=== PATIENT | female | born 1960 | race African-American/Black ===

== ENCOUNTER 2016-12-19 13:10 | Inpatient (IN) | payer OTHER ==
[~2016-12-19] VITALS: Ht 160 cm; Wt 79.4 kg
[~2016-12-19 13:10] MED LIST: LOTENSIN40 MG PO; NORCO 325 MG-7.1 TAB PO
[2016-12-19 13:14] VITALS: BP 153/98
--- NOTE | 2016-12-19 13:18 | NUR ---
Patient ambulated to bed 8. RN evaluating patient at bedside.
--- NOTE | 2016-12-19 13:29 | NUR ---
Dr. Christina evaluating patient at bedside.
--- NOTE | 2016-12-19 13:30 | NUR ---
PATIENT PRESENTS TO ED WITH C/O SOB X2 DAYS WITH COUGH; DENIES N/V/D; SKIN IS PINK/WARM/DRY; AAOX4 WITH EVEN AND STEADY GAIT; LUNGS CLEAR BL; HR EVEN AND REGULAR; PT DENIES ANY FEVER, CP, SOB, OR COUGH AT THIS TIME; PATIENT STATES PAIN OF 0/10 AT THIS TIME; VSS; PATIENT POSITIONED FOR COMFORT; HOB ELEVATED; BEDRAILS UP X2; BED DOWN. ER MD MADE AWARE OF PT STATUS.
--- NOTE | 2016-12-19 13:32 | NUR ---
Note undone in EDM - 12/19/16 at 1334 by MAGALI Patient discharged with v/s stable. Written and verbal after care instructions given and explained to parent/guardian. Parent/Guardian verbalized understanding of instructions. Carried with by parent. All questions addressed prior to discharge. ID band removed. Parent/Guardian advised to follow up with PMD. Rx of AMOXICILLIN given. Parent/Guardian educated on indication of medication including possible reaction and side effects. Opportunity to ask questions provided and answered.
[2016-12-19] MEDS ORDERED: methylPREDNISolone SS 125 MG/2 ML VIAL IVP ONE (13:40)
[2016-12-19] MEDS ORDERED: IPRATROPIUM 0.02% 0.5 MG/2.5 ML NEBU INH ONE (13:40)
[2016-12-19] MEDS ORDERED: ALBUTEROL 0.083% 2.5 MG/3 ML NEBU INH ONE (13:40)
--- NOTE | 2016-12-19 13:46 | NUR ---
EKG completed by EMT at bedside.
--- NOTE | 2016-12-19 13:48 | NUR ---
RN AND LAB AT BEDSIDE
--- NOTE | 2016-12-19 13:48 | NUR ---
Respiratory therapist at bedside for administration of breathing treatment and ABG collection.
--- NOTE | 2016-12-19 13:52 | NUR ---
ARTERIAL BLOD GAS DRAWN ORDERED EDUCATION PROVIDED TO PATIENT WITH ACKNOWLEDGEMENT PUNCTURE SITE AT LEFT RADIAL TOLERATED WELL WITHOUT INCIDENT
--- NOTE | 2016-12-19 13:55 | NUR ---
ADMITING DX: SOB AWAKE AND ALERT IN HFW POSITION EDUCATION PROVIDED TO PATIENT WITH ACKNOWLEDGEMENT ON HHN THERAPY AND RESPIRATORY DRUGS HHN THERAPY GIVEN ORDERED ENCOURAGED DEEP BREATH DURING THERAPY TOLERATED WELL WITHOUT INCIDENT POST HHN THERAPY PLACED ON SUPPLEMENTAL OXYGEN AT 2 LPM VIA NC
--- NOTE | 2016-12-19 14:05 | NUR ---
REVIEWED ARTERIAL BLOD GAS REPORT WITH DR. KRISTINA KIRBY POST HHN THERAPY OKAY TO PLACE PATIENT ON SUPPLEMENTAL OXYGEN AT 2 LPM VIA NC
--- NOTE | 2016-12-19 14:30 | NUR ---
RECEIVED PT ON UNIT FROM ED, VIA WILLIAM, PT IS A/OX4, SKIN IS INTACT, IV ON RT HAND, PATENT, INTACT, FLUSHING WELL, PT ON O2 2L NC, NO S/S OF RESPIRATORY DISTRESS OR DISCOMFORT NOTED, ORIENTED PT TO ROOM, SAFETY/FALL PRECAUTIONS IN PLACE, DISCUSSED PLAN OF CARE WITH PT, PT VERBALIZED UNDERSTANDING, SISTER IS AT BEDSIDE, CALL LIGHT IS WITHIN REACH, WILL CONTINUE TO MONITOR
[2016-12-19] MEDS ORDERED: NITROGLYCERIN 2% 1 GM PKT TP ONE (15:00)
[2016-12-19] MEDS ORDERED: ASPIRIN 81 MG TAB.CHEW PO ONE (15:00)
[2016-12-19] MEDS ORDERED: HYDROcodone/APAP 7.5/325 MG 1 TAB PO PRN (15:30)
[2016-12-19] MEDS ORDERED: ACETAMINOPHEN 325 MG TAB PO PRN (15:30)
[2016-12-19] MEDS ORDERED: ONDANSETRON 4 MG/2 ML VIAL IVP PRN (15:30)
[2016-12-19] MEDS ORDERED: LORazepam 2 MG/ML VIAL IVP PRN (15:30)
--- NOTE | 2016-12-19 15:50 | NUR ---
Patient will be admitted to care of DR GRANGER. Admited to TELE. Will go to room 120A. Belongings list completed. Report to SHEKHAR RONDON.
--- NOTE | 2016-12-19 17:15 | NUR ---
PAGED Shauna MATA FOR ORDERS AND TO INFORM HIM OF TROPONIN LEVEL.
--- NOTE | 2016-12-19 17:29 | NUR ---
RECEIVED PHONE CALL FROM DR. GRANGER, I LET HIM KNOW PT TROPONIN LEVEL WAS 1.375. PER DR. GRANGER HE WILL BE COMING IN TONIGHT TO SEE THE PT, FOR NOW WILL ORDER LOPRESSOR 12.5MG BID AND LOVENOX 60MG SQ BID, FOR LOVENOX GIVE FIRST DOSE NOW.
[2016-12-19] MEDS ORDERED: ENOXAPARIN 60 MG/0.6 ML SYR SUBQ SCH (18:00)
[2016-12-19] MEDS: ALBUTEROL 0.083% 2.5 MG/3 ML NEBU IH SCH (19:14)
[2016-12-19] MEDS: IPRATROPIUM 0.02% 0.5 MG/2.5 ML NEBU INH SCH (19:14)
--- NOTE | 2016-12-19 19:30 | NUR ---
ASSUMED CARE OF PATIENT, AWAKE, ALERT AND ORIENTED. BREATHING TREATMENT RENDERED BT RT AT BEDSIDE. NO COMPLAINS. CALL LIGHT WITHIN REACH.
--- NOTE | 2016-12-19 19:35 | NUR ---
ENDORSED PT TO SHEKHAR FOSTER. FOR CONTINUITY OF CARE, PT STABLE AT THIS TIME, FAMILY MEMBER IS AT BEDSIDE.
[2016-12-19 20:00] VITALS: BP 140/76
--- NOTE | 2016-12-19 20:00 | NUR ---
PLAN OF CARE DISCUSSED WITH PATIENT, VERBALIZED UNDERSTANDING WELL. VITAL SIGNS STABLE. AFEBRILE. CALL LIGHT WITHIN REACH. ADVISED TO DO DEEP BREATHING AND COUGHING EXERCISES NOTED, AMENABLE.
[2016-12-19] MEDS: FUROSEMIDE 20 MG/2 ML VIAL IVP SCH (20:24)
[2016-12-19] MEDS: methylPREDNISolone SS 40 MG/ML VIAL IVP SCH (20:24)
[2016-12-19] MEDS: METOPROLOL 25 MG TAB PO SCH (20:25)
--- NOTE | 2016-12-19 21:00 | NUR ---
DR. GRANGER AT BEDSIDE TO SEE PATIENT. ORDERED TO TRANSFER TO [facility] FOR ANGIOGRAM AT 1400. NPO AFTER BREAKFAST PER DR. GRANGER. PATIENT MADE AWARE. CALL LIGHT WITHIN REACH.
[2016-12-19] MEDS ORDERED: LEVOFLOXACIN 500 MG/D5W PREMIX 100 ML IV SCH (22:05)
[2016-12-20] MEDS: IPRATROPIUM 0.02% 0.5 MG/2.5 ML NEBU INH SCH ×3 (00:13→12:57)
[2016-12-20] MEDS: ALBUTEROL 0.083% 2.5 MG/3 ML NEBU IH SCH ×3 (00:13→12:57)
--- NOTE | 2016-12-20 00:30 | NUR ---
BREATHING TREATMENT RENDERED BY RT ORDERED. VITAL SIGNS STABLE. CALL LIGHT WITHIN REACH. NO COMPLAINS.
[2016-12-20 00:34] VITALS: BP 131/78
[2016-12-20 04:16] VITALS: BP 132/86
--- NOTE | 2016-12-20 04:21 | NUR ---
SLEEPING WELL, EASILY AROUSABLE VITAL SIGNS STABLE. NO COMPLAINS. CALL LIGHT WITHIN REACH.
--- NOTE | 2016-12-20 07:15 | NUR ---
ENDORSED CARE AT BEDSIDE WITH HUBER CORRIGAN, PATIENT IN STABLE CONDITION.
--- NOTE | 2016-12-20 07:19 | NUR ---
RECEIVED REPORT FROM NIGHT RN. PT RESTING IN BED. NO S/S OF ACUTE DISTRESS. AAOX4. PT DENIES PAIN AT THIS TIME. IV SITE PATENT AND INTACT. ON O2 2L NC. CALL LIGHT WITHIN REACH. SAFETY MEASURES ENSURED. WILL CONTINUE TO MONITOR.
[2016-12-20 08:00] VITALS: BP 135/86
[2016-12-20] MEDS ORDERED: BENAZEPRIL 20 MG TAB PO SCH (09:00)
[2016-12-20] MEDS: METOPROLOL 25 MG TAB PO SCH (09:00)
[2016-12-20] MEDS ORDERED: ENOXAPARIN 60 MG/0.6 ML SYR SUBQ SCH (09:00)
--- NOTE | 2016-12-20 09:09 | NUR ---
PATIENT HAS BEEN SCREENED AND CATEGORIZED MODERATE NUTRITION RISK. PATIENT WILL BE SEEN WITHIN 3-5 DAYS OF ADMISSION. 12/22/16-12/24/[address]
[2016-12-20] MEDS: methylPREDNISolone SS 40 MG/ML VIAL IVP SCH (09:20)
[2016-12-20] MEDS: FUROSEMIDE 20 MG/2 ML VIAL IVP SCH (09:20)
--- NOTE | 2016-12-20 09:20 | NUR ---
PT TOLERATED AM MEDS WELL. LOPRESSOR AND LOTENSIN HELD DUE TO NPO STATUS. LOVNEOX HELD PENDING ANGIOGRAM. PT DENIES PAIN. CALL LIGHT WITHIN REACH. SAFETY MEASURES ENSURED. WILL CONTINUE TO MONITOR.
--- NOTE | 2016-12-20 09:31 | NUR ---
SPOKE WITH BARNEY FROM [facility]. SHE SAID TO FAX REVIEW TO [phone] PHONE [phone]. I INFORMED HER OF NEED FOR TRANSFER FOR ANGIOGRAM. LEFT MESSAGE WITH CORY FROM [facility] AT [phone] ABOUT TRANSFER FOR ANGIOGRAM.
--- NOTE | 2016-12-20 10:10 | NUR ---
SPOKE WITH CORY FROM [facility]. SHE SAID THAT THEY WILL NEED TO TRANSFER PATIENT TO IN NETWORK, SO THE PATIENT WILL GO TO [facility] AND SHE WOULD ARRANGE. I GAVE HER THE PHONE NUMBER TO DR. Sonam GRANGER AND DR. Jerri GRANGER FOR MD TO MD REPORT. SHE SAID TO FAX REVIEW TO HER AT [phone]. I SPOKE WITH LONG AT [facility] AND INFORMED HER THAT THE INSURANCE WILL NOT AUTHORIZE [facility].
--- NOTE | 2016-12-20 10:28 | NUR ---
SPOKE WITH TESHA FROM [facility], . SHE SAID TO FAX REVIEW TO [phone]. SHE SAID THEY WILL BE TRANSFERRING PATIENT TO IN [facility]. I GAVE HER THE PHONE NUMBER TO DR. Sonam GRANGER AND DR. Jerri GRANGER. I FAXED HER THE REVIEW. I SPOKE WITH LONG AT [facility] AND INFORMED HER THAT THE INSURANCE WILL NOT AUTHORIZE [facility]. I SPOKE WITH CORY AND INFORMED HER THAT AT PRESENT THE PATIENT IS REFUSING THE ANGIOGRAM, AND SHE INFORMED ME THAT THEY ARE STILL PLANNING TO TRANSFER THE PATIENT. I INFORMED WARNER CORRIGAN TO TELL THE PATIENT.
--- NOTE | 2016-12-20 10:36 | NUR ---
PT NOTIFIED ABOUT PENDING TRANSFER TO [facility]. PT VERBALIZED UNDERSTANDING AND AGREEMENT. SISTER AT BEDSIDE.
[2016-12-20 10:40] VITALS: BP 135/86
--- NOTE | 2016-12-20 11:45 | NUR ---
SPOKE WITH TESHA FROM [facility]. SHE SAID THE PATIENT WILL BE TRANSFERRED TO [facility] [address], [place] [address] UNDER ATTENDING, DR. ORTEZ, CONSULT DR. Jerri GRANGER. PHONE FOR BED CONTROL, . AUTH FOR [facility] ALS TRANSPORT IS [id number]. SHE SAID THAT THEY WILL HAVE A BED ON TELE BY 3P.M. AND TO HAVE THE PATIENT THERE AT THAT TIME. SHE ALSO SAID THAT IF NO BED AVAILABLE, TO HAVE [facility] TAKE THE PATIENT DIRECTLY TO THE ALL AROUND PATTERNMAKER, STOP AT ADMITTING FIRST. I CALLED [facility] AND SPOKE WITH SARAH AND SET UP ALS TRANSPORT FOR 2P.M. WARNER CORRIGAN AWARE.
[2016-12-20 12:00] VITALS: BP 133/79
--- NOTE | 2016-12-20 12:57 | NUR ---
WOKE PT UP FOR BREATHING TX PT STATED SHE WANTED TO SLEEP NO SIGNS OF DISTRESS NOTED AT THIS TIME Addendum: 12/20/16 at 1258 by Brigid Camacho RT SHEKHAR CONKLIN
--- NOTE | 2016-12-20 12:57 | NUR ---
SPOKE WITH VIRGEN AT [facility]. THE PATIENT WILL GO TO ROOM 270 BED 1. CALL REPORT TO [phone]. WARNER CORRIGAN AWARE. ZAC AWARE OF THE ROOM NUMBER THAT THE PATIENT WILL GO TO, NOT CARDIAC BODY ENGINEER.
--- NOTE | 2016-12-20 13:27 | NUR ---
REPORT GIVEN TO [facility] NICE [facility].
--- NOTE | 2016-12-20 14:17 | NUR ---
DISCHARGE INSTRUCTIONS PROVIDED TO PT. PT VERBALIZED UNDERSTANDING. PT WILL BE TRANSFERRED WITH IV. NO S/S OF ACUTE DISTRESS. PT DENIES PAIN. CALL LIGHT WITHIN REACH. SAFETY MEASURES ENSURED. WILL CONTINUE TO MONITOR. .
--- NOTE | 2016-12-20 14:33 | NUR ---
[facility] HERE TO PRECINCT POLICE CAPTAIN PT. NO S/S OF ACUTE DISTRESS PT DENIES PAIN. PT REMAINS IN STABLE CONDITION.
--- NOTE | 2016-12-20 15:26 | NUR ---
RECEIVED CALL FROM [place] FROM [facility]. AUTH FOR 12/19/16 IS [id number]. LEFT MESSAGE WITH PAOLO DICTATING MACHINE MECHANIC.
[2016-12-24] MEDS ORDERED: ASPIRIN ADULT L81 M2 PO ×2 (11:41→13:36)
[2016-12-24] MEDS ORDERED: MECLIZINE HYDRO25 M2 PO (11:41)
[2016-12-24] MEDS ORDERED: ATORVASTATIN CA20 MG PO (12:08)
[2016-12-24] MEDS ORDERED: MECLIZINE HCL12.5 M1 PO (13:36)
[2016-12-24] MEDS ORDERED: LIPITOR40 MG PO (13:36)
== END 2016-12-20 14:34 | disposition short-term general hospital (02) | DRG 190 ==
LOC: MED 13:11 → MTU 15:38
PROVIDERS: ADMIT Preventive Medicine Preventive Medicine/Occupational Environmental Medicine; ATTEND Preventive Medicine Preventive Medicine/Occupational Environmental Medicine
DX: I21.4 Non-ST elevation (NSTEMI) myocardial infarction (principal); J96.01 Acute respiratory failure with hypoxia; I11.0 Hypertensive heart disease with heart failure; I50.9 Heart failure, unspecified; E78.5 Hyperlipidemia, unspecified; E66.9 Obesity, unspecified; R73.9 Hyperglycemia, unspecified; Z88.2 Allergy status to sulfonamides; Z72.0 Tobacco use; Z79.899 Other long term (current) drug therapy; Z68.31 Body mass index [BMI] 31.0-31.9, adult; Z87.891 Personal history of nicotine dependence

== ENCOUNTER 2016-12-23 14:38 | Observation (INO) | payer OTHER ==
[~2016-12-23] VITALS: Ht 160 cm; Wt 80.8 kg
[~2016-12-23 14:38] MED LIST changes: +ACET-2863 PO; +BENA40TA PO; -LOTENSIN40 MG PO; -NORCO 325 MG-7.1 TAB PO
[2016-12-23 14:49] VITALS: BP 109/71
--- NOTE | 2016-12-23 14:55 | NUR ---
Patient to bed 03.
--- NOTE | 2016-12-23 15:07 | NUR ---
DR. ADAMS PRESENT AT BEDSIDE.
--- NOTE | 2016-12-23 15:07 | NUR ---
Dr. Menchaca evaluating patient at bedside.
--- NOTE | 2016-12-23 15:07 | NUR ---
PATIENT PRESENTS TO ED WITH DIZZINESS X2 DAYS. PT STATES SHE WAS DISCHARGED FROM [facility] 2 DAYS AGO FOR [place]. DENIES N/V/D; SKIN IS PINK/WARM/DRY; AAOX4 WITH EVEN. PT HAS UNSTEADY GAIT; LUNGS CLEAR BL; HR EVEN AND REGULAR; PT DENIES ANY FEVER, CP, SOB, OR COUGH AT THIS TIME; PATIENT STATES PAIN OF 0/10 AT THIS TIME; VSS; PATIENT POSITIONED FOR COMFORT; HOB ELEVATED; BEDRAILS UP X2; BED DOWN. ER MD MADE AWARE OF PT STATUS.
--- NOTE | 2016-12-23 15:23 | NUR ---
LAB at bedside.
--- NOTE | 2016-12-23 15:31 | NUR ---
DR PHILLIPS ORDERED F102 2LPM NC POSSIBLE ISCHEMIA
[2016-12-23 15:39] LABS: BASOPHILS # (AUTO) 0.1 K/uL (0.00-0.22); EOSINOPHILS # (AUTO) 0.1 K/uL (0-0.4); EOSINOPHILS % (AUTO) 2.2 % (0.0-4.0); HEMATOCRIT 39.2 % (36-48); HEMOGLOBIN 12.7 g/dL (12.0-16.0); LYMPHOCYTES # (AUTO) 1.1 K/uL (2.5-16.5); LYMPHOCYTES % (AUTO) 27.5 % (20.5-51.1); MEAN CORPUSCULAR HEMOGLOBIN 27 pg (27-31); MEAN CORPUSCULAR HGB CONC 32 g/dL (33-37); MEAN CORPUSCULAR VOLUME 83 fL (80-94); MONOCYTES # (AUTO) 0.3 K/uL (0.8-1.0); MONOCYTES % (AUTO) 7.5 % (1.7-9.3); NEUTROPHILS # (AUTO) 2.3 K/uL (1.8-7.7); PLATELET COUNT (AUTO) 222 K/uL (140-450); RED BLOOD CELL COUNT(AUTO) 4.71 MIL/uL (4.20-5.40); RED CELL DISTRIBUTION WIDTH 13.8 % (11.6-13.7); WHITE BLOOD COUNT (AUTO) 3.9 K/uL (4.8-10.8)
--- NOTE | 2016-12-23 15:44 | NUR ---
XRAY at bedside.
--- NOTE | 2016-12-23 15:49 | NUR ---
SYSTEM ANALYST PRESENT AT BEDSIDE.
[2016-12-23 15:50] LABS: ANION GAP 8.1 (8-16); CALCIUM 8.7 mg/dL (8.5-10.1); CARBON DIOXIDE 30.7 mmol/L (21-32); CREATININE 0.9 mg/dL (0.6-1.3); POTASSIUM 3.8 mmol/L (3.5-5.1)
[2016-12-23 15:58] LABS: ALBUMIN 3.3 g/dL (3.4-5.0); TOTAL BILIRUBIN 0.4 mg/dL (0.0-1.0); TOTAL PROTEIN, SERUM 6.4 g/dL (6.4-8.2)
[2016-12-23 16:07] LABS: INR 1.1 (0.8-1.2); PARTIAL THROMBOPLASTIN TIME 25.8 secs (22-35.6); PROTHROMBIN TIME 10.1 secs (10.8-13.4)
--- NOTE | 2016-12-23 16:11 | NUR ---
PT TO CT VIA WILLIAM. ACCOMPANIED BY
--- NOTE | 2016-12-23 16:20 | NUR ---
PT BACK FROM CT.
[2016-12-23] MEDS ORDERED: HYDROcodone/APAP 7.5/325 MG 1 TAB PO PRN (16:50)
[2016-12-23] MEDS ORDERED: ACETAMINOPHEN 325 MG TAB PO PRN (16:50)
[2016-12-23] MEDS ORDERED: ONDANSETRON 4 MG/2 ML VIAL IVP PRN (16:50)
--- NOTE | 2016-12-23 16:58 | NUR ---
REPORT GIVEN SHEKHAR RONDON. ALL QUESTIONS ANSWERED. PT WILL BE TRANSFERRED TO [facility] ROOM 109A FOR CONTINUITY OF CARE.
--- NOTE | 2016-12-23 17:14 | NUR ---
PT TRANSFERRED TO [facility] IN STABLE CONDITION.
[2016-12-23 17:15] VITALS: BP 98/82
--- NOTE | 2016-12-23 17:15 | NUR ---
RECEIVED PT ON UNIT FROM ED VIA WILLIAM, PT IS A/OX4, AMBULATES WITH ASSIST, IV ON LT ARM, PATENT AND INTACT, SL, SKIN IS INTACT, NO S/S OF RESPIRATORY DISTRESS OR DISCOMFORT NOTED, SAFETY/FALL PRECAUTIONS IN PLACE, DISCUSSED PLAN OF CARE WITH PT, PT VERBALIZED UNDERSTANDING, ORIENTED PT TO ROOM, CALL LIGHT WITHIN REACH, WILL CONTINUE TO MONITOR.
--- NOTE | 2016-12-23 17:25 | NUR ---
DR. JIMENEZ IN PT ROOM, TALKING TO PT.
[2016-12-23 17:30] LABS: CHOL/HDL RATIO 3.6 (1-4.5); MAGNESIUM 2.2 mg/dL (1.8-2.4); PHOSPHORUS 3.2 mg/dL (2.5-4.9)
[2016-12-23 17:59] LABS: FREE T4 (FREE THYROXINE) 1.01 ng/dL (0.76-1.46); THYROID STIMULATING HORMONE 0.75 uIU/mL (0.34-3.76)
--- NOTE | 2016-12-23 18:10 | NUR ---
CALLED DR. GRANGER Y, I DID SPEAK TO HIM, I LET HIM KNOW I WAS CALLING TO INFORM HIM OF THE PATIENT'S CURRENT TROPONIN LEVEL 1.341. DR. GRANGER SAID LAST TIME PT WAS ADMITTED IT WAS ABOUT THE SAME AND HE HAD DONE AN ANGIOGRAM ON THE PT LAST WEEK. HE SAID HE SPOKE TO THE PT AND TOLD HER TO DISCONTINUE THE COREG, I ASKED DR. GRANGER IF HE WANTED TO PUT IN ANY ORDERS AT THIS TIME. HE SAID NO ORDERS FOR NOW UNLESS HE WAS ASKED TO SEE THE PT.
--- NOTE | 2016-12-23 19:20 | NUR ---
ENDORSED PT TO SHEKHAR VENTURA. FOR CONTINUITY OF CARE. PT STABLE AT THIS TIME.
--- NOTE | 2016-12-23 19:30 | NUR ---
RECEIVED REPORT FROM ALCON CORRIGAN AT [facility]. PT IS ALERT AWAKE ORIENTED X4. INITIAL ASSESSMENT DONE. NO S/S OF RESPIRATORY DISTRESS OR SOB NOTED. C/O DIZZINESS WHEN STANDING UP. WILL ADMINISTER MEDICATION FOR DIZZINESS ORDERED. PLAN OF CARE REVIEWED TO PT AND FAMILY AT BEDSIDE AND VERBALIZED UNDERSTANDING. CALL LIGHT WITHIN REACH. WILL CONTINUE TO MONITOR.
[2016-12-23] MEDS: NACL 0.9% 1,000 ML IV SCH (19:34)
[2016-12-23] MEDS: MECLIZINE 25 MG TAB PO PRN (19:42)
--- NOTE | 2016-12-23 19:45 | NUR ---
ULTRASOUND AT BEDSIDE.
[2016-12-23 20:00] VITALS: BP 109/64
[2016-12-23] MEDS: DOCUSATE SODIUM 100 MG GELCAP PO SCH (21:18)
--- NOTE | 2016-12-23 23:00 | NUR ---
CALLED DR. LONG AND NOTIFIED REGARDING TROPONIN=1.364 AND NEW ORDERS WERE GIVEN (PLS SEE CPOE). NEW ORDERS NOTED AND CARRIED OUT. WILL CONTINUE TO MONITOR.
[2016-12-23] MEDS ORDERED: HEPARIN PER PHARMACY MC PRN (23:05)
[2016-12-23] MEDS ORDERED: hePARIN / DEXT 5% PREMIX 250 ML IV SCH (23:05)
[2016-12-24] VITALS: BP 97/66
--- NOTE | 2016-12-24 00:35 | NUR ---
CALLED DR. LONG AND NOTIFIED THAT HEPARIN DRIP STARTED @ 0030 SO SHE CAN ENTER THE ORDER FOR FOR PTT AFTER 6 HOURS @ 06[address] LONG TOLD ME THAT I CAN ENTER THE ORDER FOR PTT BECAUSE IT'S A HEPARIN PROTOCOL. CHARGE NURSE KENDRA NOTIFIED. WILL CONTINUE TO MONITOR.
--- NOTE | 2016-12-24 01:00 | NUR ---
PT IS SLEEPING RIGHT NOW BUT EASILY AROUSABLE. NO S/S OF ANY DISCOMFORT AT THIS TIME. ALL NEEDS ARE ATTENDED. CALL LIGHT WITHIN REACH. WILL CONTINUE TO MONITOR.
[2016-12-24 04:00] VITALS: BP 102/65
--- NOTE | 2016-12-24 05:40 | NUR ---
AM CARE RENDERED. BED LINEN CHANGED. INSTRUCTED PT TO REPOSITION. KEPT CLEAN AND DRY. CALL LIGHT WITHIN REACH. WILL CONTINUE TO MONITOR.
[2016-12-24 06:41] LABS: BASOPHILS # (AUTO) 0.1 K/uL (0.00-0.22); BASOPHILS % (AUTO) 2.8 % (0.0-2.0); EOSINOPHILS # (AUTO) 0.1 K/uL (0-0.4); EOSINOPHILS % (AUTO) 2.3 % (0.0-4.0); HEMATOCRIT 37.7 % (36-48); HEMOGLOBIN 12.4 g/dL (12.0-16.0); LYMPHOCYTES # (AUTO) 1.8 K/uL (2.5-16.5); LYMPHOCYTES % (AUTO) 47.3 % (20.5-51.1); MEAN CORPUSCULAR HEMOGLOBIN 28 pg (27-31); MEAN CORPUSCULAR HGB CONC 33 g/dL (33-37); MEAN CORPUSCULAR VOLUME 84 fL (80-94); MONOCYTES # (AUTO) 0.2 K/uL (0.8-1.0); MONOCYTES % (AUTO) 5.8 % (1.7-9.3); NEUTROPHILS # (AUTO) 1.6 K/uL (1.8-7.7); NEUTROPHILS % (AUTO) 41.8 % (42.2-75.2); PLATELET COUNT (AUTO) 196 K/uL (140-450); RED BLOOD CELL COUNT(AUTO) 4.49 MIL/uL (4.20-5.40); RED CELL DISTRIBUTION WIDTH 13.8 % (11.6-13.7); WHITE BLOOD COUNT (AUTO) 3.8 K/uL (4.8-10.8)
[2016-12-24 07:06] LABS: CALCIUM 8.6 mg/dL (8.5-10.1); CARBON DIOXIDE 25.9 mmol/L (21-32); CREATININE 0.8 mg/dL (0.6-1.3); POTASSIUM 3.9 mmol/L (3.5-5.1)
[2016-12-24 07:10] LABS: MAGNESIUM 2.2 mg/dL (1.8-2.4)
--- NOTE | 2016-12-24 07:30 | NUR ---
PT HAS NO S/S OF ANY DISCOMFORT. PLAN OF CARE ENDORSED TO AM SHIFT NURSE FOR CONTINUITY OF CARE.
--- NOTE | 2016-12-24 07:30 | NUR ---
RECEIVED REPORT FROM NIGHT NURSE, PT IS AAOX4, ON ROOM AIR, IV TO RIGHT THUMB 22G INFUSING WELL, HEPARIN DRIP AT 1200 UNITS, SKIN INTACT. PT STATES NO CHEST PAIN AT THIS TIME. INITIAL ASSESSMENT COMPLETED. REVIEWED PLAN OF CARE WITH PT, PT VERBALIZED UNDERSTANDING. ALL SAFETY PRECAUTION MET. CALL LIGHT WITHIN REACH. WILL CONTINUE TO MONITOR.
[2016-12-24 08:00] VITALS: BP 117/72
--- NOTE | 2016-12-24 08:24 | NUR ---
HEPARIN DRIP STOPPED AT THIS TIME.
[2016-12-24] MEDS: BENAZEPRIL 20 MG TAB PO SCH ×2 (09:00→10:43)
[2016-12-24] MEDS ORDERED: PANTOPRAZOLE 40 MG INJ VIAL IVP SCH (09:00)
[2016-12-24] MEDS: DOCUSATE SODIUM 100 MG GELCAP PO SCH (09:31)
--- NOTE | 2016-12-24 09:33 | NUR ---
DUE MEDICATIONS GIVEN, BP WNL BP MEDICATION NOT GIVEN. ALL NEEDS MET. CALL LIGHT WITHIN RAECH. WILL CONTINUE TO MONITOR.
--- NOTE | 2016-12-24 10:44 | NUR ---
BP MEDICATIONS GIVEN AT THIS TIME. BP OF 149/93 HR 91. WILL CONTINUE TO MONITOR.
[2016-12-24] MEDS ORDERED: ASPI81TA28 PO ×2 (11:41→13:36)
[2016-12-24] MEDS ORDERED: MECL-272 PO (11:41)
[2016-12-24 12:00] VITALS: BP 129/69
[2016-12-24] MEDS ORDERED: ATORVASTATIN 20 MG TAB PO SCH (12:00)
[2016-12-24] MEDS ORDERED: ATOR20TA40 PO (12:08)
[2016-12-24] MEDS: NACL 0.9% 1,000 ML IV SCH (13:12)
--- NOTE | 2016-12-24 13:12 | NUR ---
DUE MEDICATIONS GIVEN, DISCUSSED DISCHARGE PLAN WITH PT, PT VERBALIZED UNDERSTANDING. CALL LIGHT WITHIN REACH. WILL CONTINUE TO MONITOR.
[2016-12-24] MEDS ORDERED: ATOR40TA PO (13:36)
[2016-12-24] MEDS ORDERED: MECL-270 PO (13:36)
[2016-12-24] MEDS: MECLIZINE 25 MG TAB PO PRN (13:38)
--- NOTE | 2016-12-24 13:39 | NUR ---
PT SIGNED ALL DISCHARGE PAPERWORK. FOLLOW UP INFORMATION GIVEN, EDUCATED PT ON NEW PRESCRIPTIONS. PT VERBALIZED UNDERSTANDING.
--- NOTE | 2016-12-24 14:13 | NUR ---
DAUGHTER IN TO SPECIAL EDUCATION DIRECTOR PT, IV REMOVED TIP INTACT. ID BANDS REMOVED, ALL PERSONAL BELONGINGS WITH PT. PT WALKED OUT TO FRONT LOBBY IN STABLE CONDITION.
[2016-12-25] MEDS ORDERED: ATORVASTATIN 20 MG TAB PO SCH (09:00)
--- NOTE | 2016-12-26 11:50 | NUR ---
7760 RECEIVED A CALL FROM CORY SALMERON AT [facility] REQUESTING CLINICAL INFORMATION BE FAXED TO [phone] REGARDING PT. INFORMED CORY PT WAS ADMITTED ON 12/23 OBSERVATION STATUS AND DISCHARGED ON 12/24/16. INFORMATION FAXED REQUESTED. CALL BACK FOR CORY IS [phone].
--- NOTE | 2016-12-26 13:07 | NUR ---
RECEIVED CALL FROM [place] FROM [facility] REQUESTING ER REPORT, H&P AND DISCHARGE SUMMARY FAXED TO HER AT [phone]. FAXED INFORMATION TO HER.
== END 2016-12-24 14:15 | disposition home or self-care (01) ==
LOC: MED 14:38 → MTU 16:59
PROVIDERS: ADMIT Family Medicine; ATTEND Family Medicine
DX: R42 Dizziness and giddiness (principal); R79.89 Other specified abnormal findings of blood chemistry; E78.5 Hyperlipidemia, unspecified; E46 Unspecified protein-calorie malnutrition; I10 Essential (primary) hypertension
CPT/HCPCS: 36415; 70450; 71010; 76536; 80048; 80053; 80061; 82140; 82150; 83036; 83605; 83690; 83735; 83880; 84100; 84439; 84443; 84484; 85025; 85610; 85730; 86886; 86900; 86901; 87081; 93005; 93880; 96361; 96365; 96366; 96372; 96375; 99285; C9113; G0378; J1644; J7030; J8597; Q0092

== ENCOUNTER 2021-03-01 15:46 | Inpatient (IN) | payer OTHER, BC, SELFPAY ==
[~2021-03-01] VITALS: Ht 160 cm; Wt 64.0 kg
[~2021-03-01 15:46] MED LIST changes: -ACET-2863 PO; +ASPI-1856 PO; +ATOR40TA PO; +HYDR-5080 PO; +MECL-416 PO
[2021-03-01 15:53] VITALS: BP 118/61
--- NOTE | 2021-03-01 17:02 | NUR ---
PATIENT AMBULATED WITH STEADY GAIT TO BED 2.
--- NOTE | 2021-03-01 17:10 | NUR ---
60 y/o F BIB daughter with c/c R hand numbness/tingling. Patient A&Ox4, ambulatory, reports at 0800 today she began experiencing hot/cold numbness and tingling to R hand and R upper/lower extremities. Patient reports difficulty swallowing which is not normal. Patient states she has an procedure tomorrow and has withheld her Eliquis per doctors orders. Patient denies any pain to hand, and states normal baseline of slurred speech and blurry vision s/p CVA. Patient denies any recent trauma, falls, injury, syncope, chest pain, abdominal pain. Pt denies any medications outside of prescribed meds. quality assurance tester and gown in place. Bed locked in lowest position, side rails x 2 for pt safety. PMH: CVA x 3, [place] x 3, HTN Meds: Eliquis, ASA, nitroglycerin, Lasix, lisinopril Sx: Denies Allergies: Sulfa
--- NOTE | 2021-03-01 17:18 | NUR ---
EKG given to Dr. Jackson; states to repeat EKG due to artifact on initial EKG. Dr. Jackson made aware patient left to RAD/CT. Will attempt EKG upon return.
--- NOTE | 2021-03-01 17:20 | NUR ---
Patient transported to RAD/CT scan via wheelchair.
--- NOTE | 2021-03-01 17:28 | NUR ---
Pt back from CT/RAD via wheelchair and placed back onto secured entrance monitor.
[2021-03-01 17:31] LABS: BASOPHILS % (AUTO) 0.9 % (0.0-2.0); EOSINOPHILS % (AUTO) 1.5 % (0.0-4.0); HEMATOCRIT 40.3 % (36-48); HEMOGLOBIN 12.8 g/dL (12.0-16.0); LYMPHOCYTES # (AUTO) 1.1 K/uL (2.5-16.5); LYMPHOCYTES % (AUTO) 34.4 % (20.5-51.1); MEAN CORPUSCULAR HEMOGLOBIN 25 pg (27-31); MEAN CORPUSCULAR HGB CONC 32 g/dL (33-37); MEAN CORPUSCULAR VOLUME 79.4 fL (80-94); MONOCYTES # (AUTO) 0.2 K/uL (0.8-1.0); MONOCYTES % (AUTO) 5.6 % (1.7-9.3); NEUTROPHILS # (AUTO) 1.8 K/uL (1.8-7.7); NEUTROPHILS % (AUTO) 57.6 % (42.2-75.2); PLATELET COUNT (AUTO) 215 K/uL (140-450); RED BLOOD CELL COUNT(AUTO) 5.07 MIL/uL (4.20-5.40); RED CELL DISTRIBUTION WIDTH 19.7 % (11.6-13.7); WHITE BLOOD COUNT (AUTO) 3.1 K/uL (4.8-10.8)
--- NOTE | 2021-03-01 17:36 | NUR ---
EMT at bedside for repeat EKG.
[2021-03-01 17:52] LABS: CARBON DIOXIDE 33.1 mmol/L (21-32); CREATININE 0.9 mg/dL (0.6-1.3); POTASSIUM 3.1 mmol/L (3.5-5.1); TOTAL BILIRUBIN 0.9 mg/dL (0.0-1.0)
[2021-03-01] MEDS ORDERED: ASPIRIN 325 MG TAB PO ONE (18:10)
--- NOTE | 2021-03-01 18:13 | NUR ---
Dr. Jackson is reevaluating patient at bedside.
--- NOTE | 2021-03-01 18:26 | NUR ---
Corona valdez collected, walked to lab and handed to CPT. Suha
--- NOTE | 2021-03-01 18:27 | NUR ---
Blankets provided per pt request.
[2021-03-01] MEDS ORDERED: POTASSIUM CHLORIDE 10 MEQ TABER PO ONE (18:45)
[2021-03-01] MEDS ORDERED: hePARIN / DEXT 5% PREMIX 250 ML IV SCH (19:10)
[2021-03-01] MEDS ORDERED: HEPARIN PER PHARMACY MC PRN (19:10)
--- NOTE | 2021-03-01 19:10 | NUR ---
Report received by SHEKHAR Silverio for continuation of care at this time.
--- NOTE | 2021-03-01 19:10 | NUR ---
Report and transfer of care endorsed to SHEKHAR Barnett.
--- NOTE | 2021-03-01 19:30 | NUR ---
Patient unable to provide complete med record at this time. Patient laying in bed locked in lowest position, x2 siderails up for patient safety. Patient reports tingling to arms and legs but primarily to R arm. Patient reports she gets pain to her L back at random times 01/21. Denies chest pain or SOB. Breathing even and unlabored, NAD noted, will continue to monitor.
--- NOTE | 2021-03-01 19:50 | NUR ---
Report called to SHEKHAR Bateman for transfer of patient care.
--- NOTE | 2021-03-01 19:55 | NUR ---
Patient will be admitted to care of DR. MCKEON. Admited to TELEMETRY. Will go to room 112B. Belongings list completed. Report to SHEKHAR MASSEY.
--- NOTE | 2021-03-01 20:00 | NUR ---
ADMITTED THIS 60 YEAR OLD FEMALE FROM ER PER WILLIAM WITH CC OF RT ARM/HAND AND RT LEG NUMBNESS AND TINGLING SENSATION, DENIES ANY CHEST PAIN OR SOB, TRANSFERRED TO BED, AAOX4, ABLE TO MAKE NEEDS KNOWN, VITAL SIGNS STABLE, ON ROOM AIR, ORIENTED TO ROOM AND CALL LIGHT, SAFETY MEASURES IN PLACE, CALL LIGHT WITHIN REACH.
[2021-03-01 20:10] VITALS: BP 95/55
[2021-03-01 20:53] LABS: PROTHROMBIN TIME 10.3 secs (10.8-13.4)
[2021-03-01] MEDS: hePARIN / DEXT 5% PREMIX 250 ML IV PRN (21:26)
--- NOTE | 2021-03-01 21:26 | NUR ---
INITIAL PT/PTT RESULT IN, HEPARIN BOLUS 4000 UNITS IVP GIVEN AND HEPARIN DRIP STARTED AT 800 UNITS/H WITNESSED BY AIRCRAFT PNEUDRAULICS REPAIRERSHEKHAR BURT, HEPARIN DRIP PROTOCOL IN PLACE, PT DENIES ANY CHEST PAIN OR SOB, MONITORED CLOSELY.
[2021-03-02] VITALS: BP 102/60
--- NOTE | 2021-03-02 | NUR ---
PT SLEEPING, EASILY AROUSABLE, VITAL SIGNS STABLE, NO RESP DISTRESS NOTED, TOLERABLE PAIN TO LEFT UPPER BACK, DENIES CHEST PAIN, HEPARIN DRIP INFUSING WELL AT 8ML/H, CONTINUE TO MONITOR CLOSELY.
--- NOTE | 2021-03-02 03:45 | NUR ---
PTT AND TROPONIN DRAWN BY PHLEB, VITAL SIGNS TAKEN, BP ON THE LOW SIDE BUT STABLE, DENIES CHEST PAIN, NO SOB NOTED, HEPARIN DRIP INFUSING WELL, MONITORED CLOSELY.
[2021-03-02 04:00] VITALS: BP 93/58
--- NOTE | 2021-03-02 07:15 | NUR ---
PT SLEEPING, NO SIGNS OF RESP DISTRESS, REPORT GIVEN TO RN NETTE FOR CONTINUITY OF CARE.
--- NOTE | 2021-03-02 07:15 | NUR ---
RECEIVED BEDSIDE REPORT FROM [employer] NURSE. PATIENT IS SLEEPING RESPIRATION EVEN UNLABORED ON ROOM AIR. NO DISTRESS NOTED. SKIN IS WARM AND DRY. IV PATENT AND INTACT. HEPARIN DRIP NOTED RUNNING AT 800UNITS/HR (8ML/HR). PLAN OF CARE WAS DISCUSSED. ALL SAFETY MEASURES IN PLACE. BED IS AT LOW POSITION. CALL LIGHT WITHIN REACH. WILL CONTINUE TO MONITOR
[2021-03-02 08:00] VITALS: BP 105/57
--- NOTE | 2021-03-02 08:20 | NUR ---
INITIAL ASSESSMENT DONE, BREAKFAST TRAY PROVIDED
[2021-03-02] MEDS ORDERED: MAG SULF 2000 MG/WATER PREMIX 50 ML IV PRN (09:05)
[2021-03-02] MEDS ORDERED: HYDROcodone/APAP 5/325 MG 1 TAB TAB PO PRN (09:05)
[2021-03-02] MEDS ORDERED: DOCUSATE SODIUM 100 MG GELCAP PO PRN (09:05)
[2021-03-02] MEDS ORDERED: ZOLPIDEM 5 MG TAB PO PRN (09:05)
[2021-03-02] MEDS ORDERED: ONDANSETRON 4 MG/2 ML VIAL IM/IVP PRN (09:05)
[2021-03-02] MEDS ORDERED: POTASSIUM CHLORIDE 10 MEQ TABER PO PRN (09:05)
[2021-03-02] MEDS ORDERED: ACETAMINOPHEN 325 MG TAB PO PRN (09:05)
[2021-03-02] MEDS ORDERED: LORazepam 2 MG/ML VIAL IM/IVP PRN (09:05)
--- NOTE | 2021-03-02 09:09 | NUR ---
PATIENT HAS BEEN SCREENED AND CATEGORIZED HIGH NUTRITION RISK. PATIENT WILL BE SEEN WITHIN 1-2 DAYS OF ADMISSION. 03/02/21-03/03/[address]
[2021-03-02] MEDS ORDERED: MECLIZINE 25 MG TAB PO PRN ×2 (09:10)
[2021-03-02] MEDS ORDERED: NITROGLYCERIN 0.4 MG TAB SL PRN (09:10)
--- NOTE | 2021-03-02 09:43 | NUR ---
AMBULATE PATIENT TO THE BATHROOM.
[2021-03-02] MEDS: NACL 0.9% 1,000 ML IV SCH (10:01)
[2021-03-02 10:38] LABS: BASOPHILS # (AUTO) 0.1 K/uL (0.00-0.22); BASOPHILS % (AUTO) 4.2 % (0.0-2.0); EOSINOPHILS # (AUTO) 0.1 K/uL (0-0.4); EOSINOPHILS % (AUTO) 1.6 % (0.0-4.0); HEMATOCRIT 35.6 % (36-48); HEMOGLOBIN 11.6 g/dL (12.0-16.0); LYMPHOCYTES % (AUTO) 30.4 % (20.5-51.1); MEAN CORPUSCULAR HEMOGLOBIN 26 pg (27-31); MEAN CORPUSCULAR HGB CONC 33 g/dL (33-37); MEAN CORPUSCULAR VOLUME 78.6 fL (80-94); MONOCYTES # (AUTO) 0.2 K/uL (0.8-1.0); MONOCYTES % (AUTO) 6.2 % (1.7-9.3); NEUTROPHILS # (AUTO) 1.9 K/uL (1.8-7.7); NEUTROPHILS % (AUTO) 57.6 % (42.2-75.2); PLATELET COUNT (AUTO) 185 K/uL (140-450); RED BLOOD CELL COUNT(AUTO) 4.53 MIL/uL (4.20-5.40); RED CELL DISTRIBUTION WIDTH 19.2 % (11.6-13.7); WHITE BLOOD COUNT (AUTO) 3.3 K/uL (4.8-10.8)
[2021-03-02 10:55] LABS: PROTHROMBIN TIME 10.5 secs (10.8-13.4)
[2021-03-02 10:57] LABS: ANION GAP 6.5 (8-16); CARBON DIOXIDE 33.3 mmol/L (21-32); CREATININE 0.9 mg/dL (0.6-1.3)
[2021-03-02 11:05] LABS: AMYLASE 81 U/L (25-115); CHOL/HDL RATIO 3.1 (1-4.5); HDL CHOLESTEROL 80 mg/dL (40-60); LDL (CALC) 153 mg/dL (60-100); LIPASE 198 U/L (73-393); MAGNESIUM 1.6 mg/dL (1.8-2.4); PHOSPHORUS 3.4 mg/dL (2.5-4.9); THYROID STIMULATING HORMONE < 0.01 uIU/mL (0.34-3.74); TRIGLYCERIDES 72 mg/dL (30-150)
[2021-03-02 11:31] LABS: POTASSIUM 2.8 mmol/L (3.5-5.1)
[2021-03-02] MEDS ORDERED: POTASSIUM CHLORIDE 10 MEQ TABER PO SCH (11:38)
[2021-03-02] MEDS ORDERED: KCL 20 MEQ/WATER INJ PREMIX 200 ML IV ONE (11:50)
[2021-03-02] MEDS: hePARIN / DEXT 5% PREMIX 250 ML IV PRN ×2 (11:53→19:03)
[2021-03-02 12:00] VITALS: BP 108/57
[2021-03-02] MEDS ORDERED: DEXTROSE 50% 50 ML SYR IVP PRN (12:00)
[2021-03-02] MEDS ORDERED: INSULIN LISPRO SLIDING SCALE 100 UNITS/ML VIAL SUBQ PRN (12:00)
[2021-03-02] MEDS ORDERED: KCL 20 MEQ/WATER INJ PREMIX 200 ML IV SCH (12:00)
[2021-03-02] MEDS ORDERED: POTASSIUM CHLORIDE 40 MEQ, LIDOCAINE MPF 1% 25 MG in NACL 0.9% 250 ML IV SCH (12:30)
--- NOTE | 2021-03-02 13:36 | NUR ---
PATIENT POTASSIUM 2.8 PER MD GIVE K-DUR 40MEQ AND K-RIDER 40MEQ. K-DUR AND K-RIDER GIVEN PER ORDER. WILL CONTINUE TO MONITOR
--- NOTE | 2021-03-02 15:03 | NUR ---
03/02/21 RD INITIAL ASSESSMENT COMPLETED PLEASE REFER TO NUTRITION ASSESSMENT UNDER CARE ACTIVITY FOR ESTIMATED NUTRITIONAL NEEDS. 1. CURRENTLY ON CARDIAC DIET 2. PENDING SWALLOW EVALUATION FOR LODGING FACILITIES MANAGER RECOMMENDATIONS ON FOOD TEXTURE AND LIQUID CONSISTENCY 3. CONSIDER ENSURE ONCE DAILY 4. RD TO FOLLOW-UP 2-3 DAYS, HIGH RISK YASMINE MARQUEZ, YULY
--- NOTE | 2021-03-02 15:15 | NUR ---
PATIENT COMPLAINED OF BURNING SENSATION FROM IV SITE 01/21. POTASSIUM WITH LIDOCAINE INFUSING. PRN PAIN MEDS GIVEN PER ORDER WILL CONTINUE TO MONITOR
[2021-03-02] MEDS: BLOOD GLUCOSE MONITORING 1 DEV DEV FS SCH ×2 (16:30→21:00)
[2021-03-02 17:36] LABS: ANION GAP 9.4 (8-16); CARBON DIOXIDE 30.7 mmol/L (21-32); CREATININE 0.8 mg/dL (0.6-1.3); POTASSIUM 4.1 mmol/L (3.5-5.1)
[2021-03-02] MEDS ORDERED: MAGNESIUM OXIDE 400 MG TAB PO SCH (17:58)
[2021-03-02] MEDS ORDERED: MAGNESIUM OXIDE 400 MG TAB ONE (18:00)
--- NOTE | 2021-03-02 18:00 | NUR ---
PATIENT MAGNESIUM LEVEL 1.6, PATIENT REFUSED MAG RIDER IV, NOTIFIED MD, PER MD ADMINISTER MAG OX 800MG PO ONCE PER ORDER. WILL CONTINUE TO MONITOR
[2021-03-02] MEDS: MORPHINE SULFATE 2 MG/ML SYR IVP PRN (18:04)
--- NOTE | 2021-03-02 18:09 | NUR ---
PATIENT COMPLAINED OF BACK PAIN 8/10 PRN PAIN MEDS GIVEN PER ORDER. WILL CONTINUE TO MONITOR.
[2021-03-02 18:26] LABS: PROTHROMBIN TIME 10.5 secs (10.8-13.4)
--- NOTE | 2021-03-02 19:25 | NUR ---
ENDORSED PATIENT TO REACH LIFT TRUCK DRIVER FOR CONTINUITY OF CARE
[2021-03-02] MEDS ORDERED: METOPROLOL 25 MG TAB ONE (19:55)
[2021-03-02 20:00] VITALS: BP 90/57
--- NOTE | 2021-03-02 20:00 | NUR ---
RECEIVED PATIENT AWAKE AND ALERT, COHERENT ABLE TO REQUEST HER NEEDS NEEDED.
--- NOTE | 2021-03-02 20:00 | NUR ---
PATIENT'S DUE MEDS WERE NOT GIVEN GIVEN DUE TO BP WAS LOW BELOW 100 SBP. BS WAS 102, NEEDING NO INSULIN COVERAGE
[2021-03-02] MEDS: METOPROLOL 25 MG TAB PO SCH (21:00)
--- NOTE | 2021-03-03 | NUR ---
PATIENT WENT TO USE BATHROOM TO PEE. RN WAS EXPECTING URINE SAMPLE TO BE COLLECTED BUT THE PATIENT FORGET THE INSTRUCTION NOT TO CONTAMINATE THE URINE. BUT PATIENT DUMP HER TOILET PAPERS AND REGINA IN THE URINE CATCH/HUT
[2021-03-03] MEDS: NACL 0.9% 1,000 ML IV SCH (01:45)
--- NOTE | 2021-03-03 02:00 | NUR ---
PATIENT WAS CALMLY ASLEEP.
[2021-03-03] MEDS: hePARIN / DEXT 5% PREMIX 250 ML IV PRN (02:24)
--- NOTE | 2021-03-03 04:00 | NUR ---
HEPARIN DRIP BAG WAS CHANGED, INFUSING WELL VIA PUMP , PATIENT TOLERATING WELL
[2021-03-03 05:47] LABS: BASOPHILS % (AUTO) 0.4 % (0.0-2.0); EOSINOPHILS # (AUTO) 0.1 K/uL (0-0.4); EOSINOPHILS % (AUTO) 2.3 % (0.0-4.0); HEMATOCRIT 35.3 % (36-48); HEMOGLOBIN 11.2 g/dL (12.0-16.0); LYMPHOCYTES # (AUTO) 1.4 K/uL (2.5-16.5); LYMPHOCYTES % (AUTO) 45.1 % (20.5-51.1); MEAN CORPUSCULAR HEMOGLOBIN 26 pg (27-31); MEAN CORPUSCULAR HGB CONC 32 g/dL (33-37); MEAN CORPUSCULAR VOLUME 80.1 fL (80-94); MONOCYTES # (AUTO) 0.2 K/uL (0.8-1.0); MONOCYTES % (AUTO) 7.5 % (1.7-9.3); NEUTROPHILS # (AUTO) 1.4 K/uL (1.8-7.7); NEUTROPHILS % (AUTO) 44.7 % (42.2-75.2); PLATELET COUNT (AUTO) 195 K/uL (140-450); RED CELL DISTRIBUTION WIDTH 19.5 % (11.6-13.7); WHITE BLOOD COUNT (AUTO) 3.1 K/uL (4.8-10.8)
[2021-03-03 06:02] LABS: ANION GAP 9.6 (8-16); CARBON DIOXIDE 29.3 mmol/L (21-32); CREATININE 0.7 mg/dL (0.6-1.3); POTASSIUM 3.9 mmol/L (3.5-5.1)
[2021-03-03] MEDS: BLOOD GLUCOSE MONITORING 1 DEV DEV FS SCH (06:40)
--- NOTE | 2021-03-03 06:41 | NUR ---
BS=84, NO INSULIN COVERAGE. RN UNABLE TO COLLECT URINE TO BE ENDORSE TO THE MORNING RN
[2021-03-03 06:42] LABS: PHOSPHORUS 3.3 mg/dL (2.5-4.9)
--- NOTE | 2021-03-03 06:43 | NUR ---
ALL REPORTS WERE GIVEN, TRANSFER OF CARE ENDORSED.
[2021-03-03 07:08] LABS: FOLIC ACID 6.6 ng/mL (>3.0); T4 (THYROXINE) 10.7 ug/dL (4.5-12.0)
--- NOTE | 2021-03-03 07:15 | NUR ---
PT WAS SEEN FOR DYSPHAGIA. PT WAS ABLE TOS AFELY SWALLOW MS DIET WITH THIN LIQUID WITHOUT S/S OF ASPIRATION. RECOMMENDATION MS DIET WITH CHOPPED MEAT AND VEG WITH THIN LIQUID
--- NOTE | 2021-03-03 07:30 | NUR ---
RECEIVED BEDSIDE REPORT FROM REIMBURSEMENT LIAISON NURSE FOR CONTINUITY OF CARE. PATIENT IS AO X4, ABLE TO MAKE NEEDS KNOWN. RESPIRATION EVEN UNLABORED ON ROOM AIR. NO DISTRESS NOTED. SKIN IS WARM AND DRY. IV IS PATENT AND INTACT. HEPARIN DRIP NOTED RUNNING AT 800UNITS/HR (8ML/HR). DENIES PAIN AT THE MOMENT. PLAN OF CARE WAS DISCUSSED. ALL SAFETY MEASURES IN PLACE. BED IS AT LOW POSITION. CALL LIGHT WITHIN REACH. WILL CONTINUE TO MONITOR
[2021-03-03 08:00] VITALS: BP 95/71
[2021-03-03] MEDS: METOPROLOL 25 MG TAB PO SCH (08:58)
[2021-03-03] MEDS ORDERED: BENAZEPRIL 20 MG TAB PO SCH (09:00)
[2021-03-03] MEDS ORDERED: ATORVASTATIN 20 MG TAB PO SCH (09:00)
[2021-03-03] MEDS ORDERED: ECOTRIN 81 MG TABEC PO SCH (09:00)
[2021-03-03] MEDS: MORPHINE SULFATE 2 MG/ML SYR IVP PRN (09:17)
--- NOTE | 2021-03-03 09:17 | NUR ---
PATIENT COMPLAINED OF BACK FAITH 02/20. ADMINISTERED PRN PAIN MEDICATIONS PER MD ORDERED.
--- NOTE | 2021-03-03 10:00 | NUR ---
RECEIVED ORDERS FROM MD TO DISCONTINUE HEPARIN DRIP AND RESTART PATIENT ON ELIQUIS.
--- NOTE | 2021-03-03 11:26 | NUR ---
DC PLANNING: FAXED H&P AND CONSULT NOTES TO FAVIOLA RAY FOR [facility] PER HER REQUEST. TOYA PHONE NUMBER IS [phone], FAX [phone]. CORY STATES THAT PATIENT HAS DME THROUGH [facility], 3 IN 1 COMMODE, CPAP. CPAP SUPPLIES ARE THROUGH [employer]. Addendum: 03/03/21 at 1426 by Lanie Ruiz CM DC PLANNING: FAVIOLA SPOKE WITH PATIENT AT BEDSIDE. STATES SHE LIVES IN A SINGLE STORY HOUSE WITH HER BROTHER IN [place]. IS NORMALLY INDEPENDENT WITH ALL ADL'S AND AMBULATION, USES A FWW OR SCOOTER TO GET AROUND. ABLE TO WALK FROM HER DRIVEWAY INTO HER HOUSE, STATES HER BROTHER ASSISTS HER SOMETIMES BUT NOT CONSISTENTLY. THE PATIENT SOMETIMES STAYS WITH HER SISTER EVELIA AT HER [place] ADDRESS ([address], [address], [place]) AND WILL STAY WITH HER UNTIL NEXT MONDAY. ENDORSED THAT FAVIOLA WILL WORK ON HOME HEALTH FOR SPEECH THERAPY BUT MAY HAVE DIFFICULTY WITH FINDING AN AGENCY THAT GOES TO [place]. IF FAVIOLA IS UNABLE TO FIND A CONTRACTED AGENCY EVELIA AND PATIENT WILL BE CONTACTED TO DISCUSS. PATIENT WILL RESCHEDULE HER GI PROCEDURE, STATES SHE SEES HER PCP EVERY 2 WEEKS. CONTRACTED HOME HEALTH AGENCIES THROUGH [facility] ARE [facility], [employer], [employer] [facility] [employer], [employer] AND [employer]. FAVIOLA WILL CONTINUE TO FOLLOW FOR NEEDS. Addendum: 03/05/21 at 1608 by Lanie Ruiz CM DC PLANNING: DIFFICULTY FINDING A HOME HEALTH AGENCY IN [place] THAT PROVIDES PT AND ST. CONFIRMED WITH [facility] IN [place] THAT THEY PROVIDE BOTH THERAPIES. FAXED INFORMATION TO YAAKOV AT [facility] ([phone]), PHONE NUMBER [phone]. Addendum: 03/05/21 at 1634 by Lanie Ruiz CM DC PLANNING: PATIENT ACCEPTED ON SERVICE WITH [facility] [employer], ANTICIPATE START OF SERVICE THIS WEEKEND.
[2021-03-03] MEDS ORDERED: INSULIN LISPRO SLIDING SCALE 100 UNITS/ML VIAL SUBQ PRN (11:50)
[2021-03-03] MEDS ORDERED: DEXTROSE 50% 50 ML SYR IVP PRN (11:50)
[2021-03-03 12:00] VITALS: BP 120/82
[2021-03-03] MEDS ORDERED: APIXABAN 2.5 MG TAB PO SCH (12:00)
--- NOTE | 2021-03-03 12:10 | NUR ---
ALL SCHEDULED MEDICATIONS GIVEN. PT IS STABLE. NO DISTRESS NOTED. WILL CONTINUE TO MONITOR.
[2021-03-03] MEDS ORDERED: APIX2.5 PO (12:31)
[2021-03-03] MEDS ORDERED: METO25TA PO (12:31)
--- NOTE | 2021-03-03 12:34 | NUR ---
DISCHARGE ORDERS RECEIVED WILL NOTIFY PATIENT.
[2021-03-03 13:06] LABS: APPEARANCE,URINE CLEAR (CLEAR); BILIRUBIN,URINE NEGATIVE (NEGATIVE); BLOOD, URINE NEGATIVE (NEGATIVE); COLOR,URINE YELLOW (YELLOW); LEUKOCYTE ESTERASE ,URINE NEGATIVE (NEGATIVE); NITRITE, URINE NEGATIVE (NEGATIVE); UGLUCOSE NEGATIVE (NEGATIVE)
[2021-03-03 13:27] VITALS: BP 120/82
--- NOTE | 2021-03-03 14:20 | NUR ---
ENDORSED DISCHARGED INSTRUCTIONS TO PATIENT. PATIENT VERBALIZED UNDERSTANDING AND SIGNED DISCHARGE FORMS.
--- NOTE | 2021-03-03 14:40 | NUR ---
PATIENT DISCHARGED OFF THE UNIT. PICKED UP BY FAMILY AT THE FRONT LOBBY. ID [id number] AND IV WAS REMOVED. PT WAS STABLE PRIOR TO DISCHARGE.
[2021-03-03] MEDS ORDERED: BLOOD GLUCOSE MONITORING 1 DEV DEV FS SCH (16:30)
== END 2021-03-03 14:35 | disposition home health service (06) | DRG 280 ==
LOC: MED 15:46 → MTU 19:13
DX: I21.4 Non-ST elevation (NSTEMI) myocardial infarction (principal); I50.43 Acute on chronic combined systolic (congestive) and diastolic (congestive) heart failure; E78.5 Hyperlipidemia, unspecified; F17.210 Nicotine dependence, cigarettes, uncomplicated; I11.0 Hypertensive heart disease with heart failure; I25.2 Old myocardial infarction; J44.9 Chronic obstructive pulmonary disease, unspecified; E87.6 Hypokalemia; R13.10 Dysphagia, unspecified; D72.819 Decreased white blood cell count, unspecified; D50.9 Iron deficiency anemia, unspecified; I25.10 Atherosclerotic heart disease of native coronary artery without angina pectoris; E83.42 Hypomagnesemia; E05.90 Thyrotoxicosis, unspecified without thyrotoxic crisis or storm; Z86.73 Personal history of transient ischemic attack (TIA), and cerebral infarction without residual deficits; Z88.2 Allergy status to sulfonamides; Z86.711 Personal history of pulmonary embolism; Z90.710 Acquired absence of both cervix and uterus; Z91.14 Patient's other noncompliance with medication regimen
CPT/HCPCS: 36415; 70450; 71045; 76536; 80048; 80053; 81003; 82150; 82607; 82728; 82746; 82948; 83036; 83540; 83690; 83735; 83880; 84100; 84134; 84436; 84439; 84443; 84484; 85025; 85045; 85610; 85730; 87081; 92610; 92700; 93005; 99291; J1644; J2001; J2270; J3475; J3480; J7030